=== PATIENT | male | born 1985 ===

== ENCOUNTER 2025-03-08 06:39 | Day surgery (SDC) | payer OTHER ==
[2025-03-08] MEDS ORDERED: DIPHENHYDRAMINE HCL 50 MG/ML VIAL 1ML IV ONE (10:45)
[2025-03-08] MEDS ORDERED: fentaNYL CITRATE 50 MCG/ML AMPUL IV PUSH ONE (10:45)
[2025-03-08] MEDS ORDERED: MIDAZOLAM HCL 2 MG/2 ML VIAL IV ONE (10:45)
== END 2025-03-08 11:55 | disposition home or self-care (01) ==
LOC: AMB-ENDOS 06:39
PROVIDERS: ATTEND Internal Medicine
DX: D12.5 Benign neoplasm of sigmoid colon (principal); K63.5 Polyp of colon; R19.4 Change in bowel habit; K57.30 Diverticulosis of large intestine without perforation or abscess without bleeding; Z88.0 Allergy status to penicillin; Z88.5 Allergy status to narcotic agent